=== PATIENT | female | born 1955 | race African-American/Black ===

== ENCOUNTER 2017-01-01 12:59 | Emergency (ER) | payer BC, SELFPAY ==
[2017-01-01] MEDS ORDERED: Ibuprofen 200 MG TAB ONE (13:46)
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
== END 2017-01-01 14:31 | disposition home or self-care (01) ==
LOC: ERS 12:59
DX: M54.2 Cervicalgia (principal); V49.40XA Driver injured in collision with unspecified motor vehicles in traffic accident, initial encounter
CPT/HCPCS: 72040